=== PATIENT | male | born 1990 | race Caucasian/White ===

== ENCOUNTER 2020-11-08 17:13 | Emergency (ER) | payer BC ==
[~2020-11-08] VITALS: Ht 188 cm; Wt 104.3 kg
[2020-11-08] MEDS ORDERED: VALTREX1000 MG PO (17:50)
[2020-11-08] MEDS ORDERED: LISINOPRIL20 MG PO (17:50)
== END 2020-11-08 21:24 | disposition home or self-care (01) ==
LOC: ED 17:13
DX: B34.9 Viral infection, unspecified (principal); K21.9 Gastro-esophageal reflux disease without esophagitis; I10 Essential (primary) hypertension; F17.200 Nicotine dependence, unspecified, uncomplicated; Z20.822 Contact with and (suspected) exposure to COVID-19; Z79.899 Other long term (current) drug therapy
CPT/HCPCS: 81001; 99283; C9803; U0003